=== PATIENT | female | born 1980 | race Caucasian/White ===

== ENCOUNTER 2019-03-05 18:27 | Emergency (ER) | payer OTHER ==
--- OUTSIDE RECORDS SUMMARY | 2019-03-05 18:29 | XMS REPORT ---
:1980 Author Organization eClinicalWorks Care Team Providers Name Role Phone [facility] Provider Role Unavailable Allergies No Known Allergies Problems Problem Type Condition Code Onset Dates Condition Status Assessment Need for Tdap vaccination Z23 Active Assessment Not immune to hepatitis B virus Z78.9 Active Problem Pelvic pain R10.2 Active Problem Breast pain, right N64.4 Active Problem Abnormal mammogram R92.8 Active Problem Migraine without aura and without G43.009 Active status migrainosus, not intractable Problem Well woman exam with routine Z01.419 Active gynecological exam Problem Hyperlipidemia, mixed E78.2 Active Medications No Known Medications Results No Known Results Immunizations Vaccine Administration Date TDAP- Boostrix November 08, 2018 Summary Purpose [employer]Clinical[employer] Submission
--- OUTSIDE RECORDS SUMMARY | 2019-03-05 18:29 | XMS REPORT ---
:1980 Author Organization e[employer] Care Team Providers Name Role Phone Vazquez, [facility] Provider Role Unavailable Allergies No Known Allergies Problems Problem Type Condition Code Onset Dates Condition Status Problem Pelvic pain R10.2 Active Problem Breast pain, right N64.4 Active Problem Abnormal mammogram R92.8 Active Problem Migraine without aura and without G43.009 Active status migrainosus, not intractable Problem Well woman exam with routine Z01.419 Active gynecological exam Problem Hyperlipidemia, mixed E78.2 Active Medications No Known Medications Results No Known Results Summary Purpose eClinicalWorks Submission
--- OUTSIDE RECORDS SUMMARY | 2019-03-05 18:29 | XMS REPORT ---
:1980 Author Organization eClinical[employer] Care Team Providers Name Role Phone Charles Vazquez Provider Role Unavailable Allergies No Known Allergies Problems Problem Type Condition Code Onset Dates Condition Status Assessment Encounter for pre-employment Z02.1 Active examination Problem Pelvic pain R10.2 Active Problem Breast pain, right N64.4 Active Problem Abnormal mammogram R92.8 Active Problem Migraine without aura and without G43.009 Active status migrainosus, not intractable Problem Well woman exam with routine Z01.419 Active gynecological exam Problem Hyperlipidemia, mixed E78.2 Active Medications No Known Medications Results No Known Results Summary Purpose [employer] Submission
--- OUTSIDE RECORDS SUMMARY | 2019-03-05 18:29 | XMS REPORT ---
:1980 Author Organization eClinicalWorks Care Team Providers Name Role Phone Rodri Landers Provider Role Unavailable Allergies No Known Allergies Problems Problem Type Condition Code Onset Dates Condition Status Assessment Abnormal mammogram R92.8 Active Problem Pelvic pain R10.2 Active Problem Breast pain, right N64.4 Active Problem Abnormal mammogram R92.8 Active Problem Migraine without aura and without G43.009 Active status migrainosus, not intractable Problem Well woman exam with routine Z01.419 Active gynecological exam Problem Hyperlipidemia, mixed E78.2 Active Medications No Known Medications Results No Known Results Summary Purpose [employer] Submission
--- OUTSIDE RECORDS SUMMARY | 2019-03-05 18:29 | XMS REPORT ---
:1980 Author Organization eClinicalWorks Care Team Providers Name Role Phone Rodri Landers Provider Role Unavailable Allergies, Adverse Reactions, Alerts Substance Reaction Event Type N.K.D.A. Info Not Available Non Drug Allergy Problems Problem Type Condition Code Onset Dates Condition Status Assessment Breast pain, right N64.4 Active Problem Pelvic pain R10.2 Active Problem Breast pain, right N64.4 Active Problem Abnormal mammogram R92.8 Active Problem Migraine without aura and without G43.009 Active status migrainosus, not intractable Problem Well woman exam with routine Z01.419 Active gynecological exam Problem Hyperlipidemia, mixed E78.2 Active Medications No Known Medications Results No Known Results Summary Purpose eClinicalWorks Submission
--- OUTSIDE RECORDS SUMMARY | 2019-03-05 18:29 | XMS REPORT ---
:1980 Author Organization eClinicalWorks Care Team Providers Name Role Phone Rodri Landers Provider Role Unavailable Allergies No Known Allergies Problems Problem Type Condition Code Onset Dates Condition Status Problem Pelvic pain R10.2 Active Problem Breast pain, right N64.4 Active Problem Well woman exam with routine Z01.419 Active gynecological exam Assessment Breast pain, right N64.4 Active Problem Hyperlipidemia, mixed E78.2 Active Problem Migraine without aura and without G43.009 Active status migrainosus, not intractable Medications No Known Medications Results No Known Results Summary Purpose [employer]ClinicalWorks Submission
--- OUTSIDE RECORDS SUMMARY | 2019-03-05 18:29 | XMS REPORT ---
:1980 Author Organization eClinicalWorks Care Team Providers Name Role Phone Rodri Landers Provider Role Unavailable Allergies, Adverse Reactions, Alerts Substance Reaction Event Type N.K.D.A. Info Not Available Non Drug Allergy Problems Problem Type Condition Code Onset Dates Condition Status Assessment Pelvic pain R10.2 Active Assessment Breast pain, right N64.4 Active Problem Pelvic pain R10.2 Active Problem Breast pain, right N64.4 Active Problem Well woman exam with routine Z01.419 Active gynecological exam Assessment Well woman exam with routine Z01.419 Active gynecological exam Problem Hyperlipidemia, mixed E78.2 Active Problem Migraine without aura and without G43.009 Active status migrainosus, not intractable Medications No Known Medications Results Name Result Date Reference Range Unit Abnormality Flag TRICHOMONAS VAGINALIS, QL TMA, PAP VIAL ----TRICHOMONAS NOT DETECTED [id number] NOT DETECTED N VAGINALIS, QL TMA, PAP VIAL HPV GENOTYPES 16,18/45 ----HPV 16 RNA NOT DETECTED [id number] NOT DETECTED ----HPV 18/45 RNA NOT DETECTED [id number] NOT DETECTED N THINPREP TIS PAP AND HPV mRNA E6/E7 REFLEX HPV 16,18/45 ----HPV mRNA E6/E7 Detected [id number] Not Detected A ----SOURCE: None given [id number] N ----CLINICAL INFORMATION: None given [id number] N ----LMP: NONE GIVEN [id number] N ----PREV. PAP: NONE GIVEN [id number] N ----PREV. BX: NONE GIVEN [id number] N SURESWAB(R) CHLAMYDIA/ N. GONORRHOEAE RNA, TMA ----NEISSERIA GONORRHOEAE NOT DETECTED [id number] NOT DETECTED N RNA, TMA, UROGENITAL ----CHLAMYDIA TRACHOMATIS NOT DETECTED [id number] NOT DETECTED N RNA, TMA, UROGENITAL Summary Purpose [employer] Submission
[2019-03-05] MEDS ORDERED: NA CHLORIDE 0.9% 1,000 ML ONE (19:00)
[2019-03-05 19:05] LABS: Urine Blood NEGATIVE (NEG); Urine Glucose NEGATIVE (NEG); Urine Protein NEGATIVE (NEG)
[2019-03-05] MEDS ORDERED: KETOROLAC 30 MG/ML INJ ONE (19:11)
[2019-03-05] MEDS ORDERED: ONDANSETRON 4 MG/2 ML VIAL ONE (19:11)
--- NOTE | 2019-03-05 19:17 | RAD REPORT ---
EXAM DESCRIPTION: CT - Head Brain Wo Cont - 03/05/2019 6:57 pm CLINICAL HISTORY: HEADACHE Headache, drowsiness COMPARISON: No comparisons TECHNIQUE: All CT scans are performed using dose optimization technique as appropriate and may inclu de automated exposure control or mA/KV adjustment according to patient size. FINDINGS: No intracranial hemorrhage, hydrocephalus or extra-axial fluid collection.No areas of brai n edema or evidence of midline shift. The paranasal sinuses and mastoids are clear. The calvarium is intact. IMPRESSION: No acute intracranial abnormality.
[2019-03-05] MEDS ORDERED: METOCLOPRAMIDE 10 MG/2mL INJ ONE (19:18)
[2019-03-05 19:25] LABS: Absolute Lymphocytes (CBC) 2.5 K/uL (0.7-4.9); Basophils % 0.6 % (0-1.3); Hematocrit 37.7 % (36.0-45.0); Lymphocytes % 24.6 % (15.3-44.8); RBC Red Blood Cell Count 4.51 M/uL (3.86-4.86)
--- NOTE | 2019-03-05 19:31 | RAD REPORT ---
EXAM DESCRIPTION: RAD - Chest Single View - 03/05/2019 7:19 pm CLINICAL HISTORY: COUGH Chest pain. COMPARISON: No comparisons FINDINGS: Portable technique limits examination quality. The lungs are grossly clear. The heart is normal in size. No displaced fractures. IMPRESSION: No acute intrathoracic process suspected.
[2019-03-05 19:37] LABS: Protime INR 1.08
[2019-03-05 19:42] LABS: ALT/SGPT 18 U/L (12-78); AST/SGOT 11 U/L (15-37); Albumin 3.8 g/dL (3.4-5.0); Alkaline Phosphatase 57 U/L (45-117); BUN Blood Urea Nitrogen 15 mg/dL (7-18); Bicarbonate 30 mmol/L (21-32); Bilirubin Direct < 0.1 mg/dL (0-0.2); Bilirubin Total 0.3 mg/dL (0.2-1.0); Glucose Level 84 mg/dL (74-106); Magnesium 2.1 mg/dL (1.8-2.4); NT PRO-BNP 54 pg/mL (<125); Potassium 3.8 mmol/L (3.5-5.1); Protein, Total 7.5 g/dL (6.4-8.2); Sodium Level 140 mmol/L (136-145); Troponin (Emerg Dept Use Only) < 0.02 ng/mL (0.0-0.045)
--- NOTE | 2019-03-05 20:23 | RAD REPORT ---
EXAM DESCRIPTION: CT - Head angio - 03/05/2019 8:10 pm CLINICAL HISTORY: DIZZINESS Headache, drowsiness COMPARISON: <Comparisons> TECHNIQUE: CT angiography of the head was performed with MIPs. All CT scans are performed using dose optimization technique as appropriate and may include automated exposure control or mA/KV adjustment according to patient size. FINDINGS: No evidence of aneurysm is detected. No flow-limiting stenosis or vascular malformation id entified. Antegrade flow is seen in the vertebral arteries. The vertebral arteries are codominant. The visualized dural venous sinuses are patent. IMPRESSION: No significant flow abnormality is detected.
--- NOTE | 2019-03-05 20:31 | ER ---
Nurse's Notes [facility] Name: Marylin Sanchez Age: 38 yrs Sex: Female : 1980 Arrival Date: 03/05/2019 Time: 18:29 Bed 24 Private MD: Unknown, Unknown Diagnosis: Headache;Dizziness and giddiness Presentation: 03/05 18:34 Presenting complaint: Patient states: "I was at the football game and I started feeling aj1 really intense pressure in my head, and then I got dizzy and my vision was blurry so I sat down, someone got me a water and I waited till the game was over and I don't feel as much pressure anymore but I still have a really bad headache." Reports that blurred vision has resolved. Transition of care: patient was not received from another setting of care. Onset of symptoms was March 05, 2019 at 16:30. Risk Assessment: Do you want to hurt yourself or someone else? Patient reports no desire to harm self or others. Initial Sepsis Screen: Does the patient meet any 2 criteria? HR > 90 bpm. No. Patient's initial sepsis screen is negative. Does the patient have a suspected source of infection? No. Patient's initial sepsis screen is negative. Care prior to arrival: None. 18:34 Method Of Arrival: Ambulatory aj1 18:34 Acuity: KRISTA 3 aj1 Triage Assessment: 18:36 General: Appears in no apparent distress. comfortable, Behavior is calm, cooperative, aj1 appropriate for age. Pain: Complains of pain in top of head and forehead Pain does not radiate. Pain currently is 9 out of 10 on a pain scale. Neuro: Level of Consciousness is awake, alert, obeys commands. Neuro: Oriented to person, place, time, situation, Moves all extremities. Full function Gait is steady, Speech is normal, Facial symmetry appears normal, Reports blurred vision dizziness, headache Denies weakness. Cardiovascular: Patient's skin is warm and dry. Respiratory: Airway is patent Respiratory effort is even, unlabored, Respiratory pattern is regular, symmetrical. 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 - Social history:: Smoking status: Patient uses tobacco products, denies chronic smoking, but will smoke occasionally. - Ebola Screening: : Patient denies travel to an Ebola-affected area in the 21 days before illness onset. Screenin:09 Abuse screen: Denies threats or abuse. Denies injuries from another. Nutritional mg2 screening: No deficits noted. Tuberculosis screening: No symptoms or risk factors identified. Fall Risk IV access (20 points). Assessment: 20:06 General: Appears in no apparent distress. comfortable, Behavior is calm, cooperative. mg2 Pain: Complains of pain in head Pain does not radiate. Pain currently is 6 out of 10 on a pain scale. Quality of pain is described as aching, Pain began gradually, Is intermittent. Neuro: Level of Consciousness is awake, alert, obeys commands, Oriented to person, place, time, situation. Neuro: Reports dizziness, headache. Cardiovascular: Capillary refill < 3 seconds Patient's skin is warm and dry. Respiratory: Airway is patent Respiratory effort is even, unlabored, Respiratory pattern is regular, symmetrical. GI: Reports nausea. : No signs and/or symptoms were reported regarding the genitourinary system. EENT: No signs and/or symptoms were reported regarding the EENT system. Derm: Skin is intact, is healthy with good turgor, Skin is pink, warm \\T\\ dry. normal. Musculoskeletal: Circulation, motion, and sensation intact. Capillary refill < 3 seconds. 20:53 Reassessment: Patient appears in no apparent distress at this time. Patient and/or mg2 family updated on plan of care and expected duration. Pain level reassessed. Patient is alert, oriented x 3, equal unlabored respirations, skin warm/dry/pink. Patient states feeling better. Patient states symptoms have improved. Vital Signs: 18:36 BP 123 / 85; Pulse 93; Resp 18; Temp 98.1; Pulse Ox 100% on R/A; Weight 92.99 kg (R); aj1 Height 5 ft. 7 in. (170.18 cm) (R); Pain 7/10; 20:00 BP 115 / 87; Pulse 90; Resp 18; Pulse Ox 100% ; mg2 21:04 BP 96 / 65; Pulse 89; Resp 18; Temp 98; Pulse Ox 100% on R/A; mg2 18:36 Body Mass Index 32.11 (92.99 kg, 170.18 cm) aj1 ED Course: 18:29 Patient arrived in ED. ag5 18:29 None, None is Private Physician. ag5 18:29 Unknown, Unknown is Private Physician. ag5 18:36 Triage completed. aj1 18:36 Arm band placed on Patient placed in an exam room. aj1 18:42 Carter March MD is Attending Physician. zafar 18:48 Kavon Dobbins, LEWIS is Primary Nurse. mg2 18:57 CT completed. Patient tolerated procedure well. Patient moved back from CT. bq 18:57 CT Head Brain wo Cont In Process Unspecified. EDMS 19:19 XRAY Chest (1 view) In Process Unspecified. EDMS 19:39 Radiology exam delayed due to lab results not completed at this time. (BUN/Creatinine). kw1 20:02 Marybeth Silva FNP-C [facility]. snw 20:09 CT completed. Patient tolerated procedure well. Patient moved back from CT. mw3 20:09 No provider procedures requiring assistance completed. Inserted saline lock: 20 gauge mg2 in left antecubital area, using aseptic technique. Blood collected. 20:10 Patient has correct armband on for positive identification. Pulse ox on. NIBP on. Door mg2 closed. Warm blanket given. 20:11 CT Head Angio In Process Unspecified. EDMS 20:30 Tonny Moon MD is Referral Physician. snw 21:03 IV discontinued, intact, bleeding controlled, No redness/swelling at site. Pressure mg2 dressing applied. Administered Medications: 19:13 Drug: NS 0.9% 1000 ml Route: IV; Rate: 1 bolus; Site: left antecubital; mg2 20:30 Follow up: Response: No adverse reaction; IV Status: Completed infusion; IV Intake: mg2 1000ml 19:13 CANCELLED (Physician Discretion): TORadol 30 mg IVP once mg2 19:13 CANCELLED (Physician Discretion): Zofran 4 mg IVP once; over 2 minutes mg2 19:24 Drug: TORadol 30 mg Route: IVP; Site: left antecubital; mg2 20:29 Follow up: Response: No adverse reaction; Marked relief of symptoms mg2 19:24 Drug: Reglan 10 mg Route: IVP; Site: left antecubital; mg2 20:29 Follow up: Response: No adverse reaction; Marked relief of symptoms mg2 Intake: 20:30 IV: 1000ml; Total: 1000ml. mg2 Outcome: 20:30 Discharge ordered by MD. lane 21:05 Discharged to home ambulatory. mg2 21:05 Condition: stable 21:05 Discharge instructions given to patient, Instructed on discharge instructions, follow up and referral plans. medication usage, Demonstrated understanding of instructions, follow-up care, medications, Prescriptions given X 2. 21:05 Patient left the ED. mg2 Signatures: Dispatcher [employer] EDMaude Duarte RN RN aj1 Carter March MD MD cha Therrien, Shelly, TRANSPORTATION ASSISTANT-C TRANSPORTATION ASSISTANT-Csnw Aliza Negrete Kimberly kw1 Kavon Dobbins RN RN mg2 Rose Mary Llanos mw3 Henry Betancur 5
--- NOTE | 2019-03-05 20:31 | EDPHYS ---
Physician Documentation [facility] Name: Marylin Sanchez Age: 38 yrs Sex: Female : 1980 Arrival Date: 03/05/2019 Time: 18:29 Bed 24 Private MD: Unknown, Unknown ED Physician Carter March HPI: 03/05 19:11 This 38 yrs old Female presents to ER via Ambulatory with complaints of [facility] Dizziness, Blurred Vision, Head Pressure. 19:11 The patient presents with dizziness, feeling faint. 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 - Social history:: Smoking status: Patient uses tobacco products, denies chronic smoking, but will smoke occasionally. - Ebola Screening: : Patient denies travel to an Ebola-affected area in the 21 days before illness onset. ROS: 19:15 Constitutional: Negative for fever, chills, and weight loss, Eyes: Negative for injury, zafar pain, redness, and discharge, ENT: Negative for injury, pain, and discharge, Neck: Negative for injury, pain, and swelling, Cardiovascular: Negative for chest pain, palpitations, and edema, Respiratory: Negative for shortness of breath, cough, wheezing, and pleuritic chest pain, Abdomen/GI: Negative for abdominal pain, nausea, vomiting, diarrhea, and constipation, Back: Negative for injury and pain, : Negative for injury, bleeding, discharge, and swelling, MS/Extremity: Negative for injury and deformity, Skin: Negative for injury, rash, and discoloration, Psych: Negative for depression, anxiety, suicide ideation, homicidal ideation, and hallucinations, Allergy/Immunology: Negative for hives, rash, and allergies, Endocrine: Negative for neck swelling, polydipsia, polyuria, polyphagia, and marked weight changes, Hematologic/Lymphatic: Negative for swollen nodes, abnormal bleeding, and unusual bruising. 19:15 Neuro: Positive for headache. Exam: 19:15 Constitutional: This is a well developed, well nourished patient who is awake, alert, zafar and in no acute distress. Head/Face: Normocephalic, atraumatic. Eyes: Pupils equal round and reactive to light, extra-ocular motions intact. Lids and lashes normal. Conjunctiva and sclera are non-icteric and not injected. Cornea within normal limits. Periorbital areas with no swelling, redness, or edema. ENT: Nares patent. No nasal discharge, no septal abnormalities noted. Tympanic membranes are normal and external auditory canals are clear. Oropharynx with no redness, swelling, or masses, exudates, or evidence of obstruction, uvula midline. Mucous membranes moist. Neck: Trachea midline, no thyromegaly or masses palpated, and no cervical lymphadenopathy. Supple, full range of motion without nuchal rigidity, or vertebral point tenderness. No Meningismus. Chest/axilla: Normal chest wall appearance and motion. Nontender with no deformity. No lesions are appreciated. Cardiovascular: Regular rate and rhythm with a normal S1 and S2. No gallops, murmurs, or rubs. Normal PMI, no JVD. No pulse deficits. Respiratory: Lungs have equal breath sounds bilaterally, clear to auscultation and percussion. No rales, rhonchi or wheezes noted. No increased work of breathing, no retractions or nasal flaring. Abdomen/GI: Soft, non-tender, with normal bowel sounds. No distension or tympany. No guarding or rebound. No evidence of tenderness throughout. Back: No spinal tenderness. No costovertebral tenderness. Full range of motion. Skin: Warm, dry with normal turgor. Normal color with no rashes, no lesions, and no evidence of cellulitis. MS/ Extremity: Pulses equal, no cyanosis. Neurovascular intact. Full, normal range of motion. Neuro: Awake and alert, GCS 15, oriented to person, place, time, and situation. Cranial nerves II-XII grossly intact. Motor strength 5/5 in all extremities. Sensory grossly intact. Cerebellar exam normal. Normal gait. Psych: Awake, alert, with orientation to person, place and time. Behavior, mood, and affect are within normal limits. 19:22 Neck: ROM/movement: is normal, no acute changes, Meningeal signs: are not present, azfar Kernig's sign is negative, Brudzinski's sign is negative. Vital Signs: 18:36 BP 123 / 85; Pulse 93; Resp 18; Temp 98.1; Pulse Ox 100% on R/A; Weight 92.99 kg (R); aj1 Height 5 ft. 7 in. (170.18 cm) (R); Pain 7/10; 20:00 BP 115 / 87; Pulse 90; Resp 18; Pulse Ox 100% ; mg2 21:04 BP 96 / 65; Pulse 89; Resp 18; Temp 98; Pulse Ox 100% on R/A; mg2 18:36 Body Mass Index 32.11 (92.99 kg, 170.18 cm) aj1 MDM: 18:45 Patient medically screened. [facility] 19:17 Data reviewed: vital signs, nurses notes, lab test result(s), EKG, radiologic studies, [facility] CT scan, plain films. 03/05 18:44 Order name: Basic Metabolic Panel; Complete Time: 20:02 [facility] 03/05 18:44 Order name: CBC with Diff; Complete Time: 20:02 [facility] 03/05 18:44 Order name: LFT's; Complete Time: 20:02 [facility] 03/05 18:44 Order name: Magnesium; Complete Time: 20:02 [facility] 03/05 18:44 Order name: NT PRO-BNP; Complete Time: 20:02 [facility] 03/05 18:44 Order name: PT-INR; Complete Time: 20:02 [facility] 03/05 18:44 Order name: Troponin (emerg Dept Use Only); Complete Time: 20:02 [facility] 03/05 18:44 Order name: XRAY Chest (1 view); Complete Time: 20:02 [facility] 03/05 18:44 Order name: Urine Culture [facility] 03/05 18:45 Order name: CT Head Brain wo Cont; Complete Time: 20:02 [facility] 03/05 18:57 Order name: Urine Dipstick--Ancillary (enter results); Complete Time: 19:11 [facility] 03/05 18:57 Order name: Urine --Ancillary (enter results); Complete Time: 19:11 [facility] 03/05 19:11 Order name: CT Head Angio; Complete Time: 20:29 [facility] 03/05 18:44 Order name: EKG; Complete Time: 18:45 [facility] 03/05 18:44 Order name: Cardiac monitoring; Complete Time: 19:13 [facility] 03/05 18:44 Order name: EKG - Nurse/Tech; Complete Time: 20:23 [facility] 03/05 18:44 Order name: IV Saline Lock; Complete Time: 19:14 [facility] 03/05 18:44 Order name: Labs collected and sent; Complete Time: 19:14 [facility] 03/05 18:44 Order name: O2 Per Protocol; Complete Time: 19:14 [facility] 03/05 18:44 Order name: O2 Sat Monitoring; Complete Time: 19:14 [facility] 03/05 18:44 Order name: Urine Dipstick-Ancillary (obtain specimen); Complete Time: 18:55 [facility] 03/05 18:44 Order name: Urine Test (obtain specimen); Complete Time: 18:55 [facility] Administered Medications: 19:13 Drug: NS 0.9% 1000 ml Route: IV; Rate: 1 bolus; Site: left antecubital; mg2 20:30 Follow up: Response: No adverse reaction; IV Status: Completed infusion; IV Intake: mg2 1000ml 19:13 CANCELLED (Physician Discretion): TORadol 30 mg IVP once mg2 19:13 CANCELLED (Physician Discretion): Zofran 4 mg IVP once; over 2 minutes mg2 19:24 Drug: TORadol 30 mg Route: IVP; Site: left antecubital; mg2 20:29 Follow up: Response: No adverse reaction; Marked relief of symptoms mg2 19:24 Drug: Reglan 10 mg Route: IVP; Site: left antecubital; mg2 20:29 Follow up: Response: No adverse reaction; Marked relief of symptoms mg2 Disposition: 03/05/19 20:30 Discharged to Home. Impression: Headache, Dizziness and giddiness. - Condition is Stable. - Discharge Instructions: Dizziness, General Headache Without Cause, General Headache Without Cause, [id number], Dizziness, [id number]-[id number]. - Prescriptions for Fioricet with Codeine 50- 325-40-30 mg Oral capsule - take 1 capsule by ORAL route every 4 hours as needed not to exceed 6 capsules per 24hrs; 24 capsule. Zofran 4 mg Oral Tablet - take 1 tablet by ORAL route every 12 hours As needed; 20 tablet. - Medication Reconciliation Form, Thank You Letter, Antibiotic Education, Prescription Opioid Use form. - Follow up: Private Physician; When: 2 - 3 days; Reason: Recheck today's complaints, Continuance of care, Re-evaluation by your physician. Follow up: Tonny Moon; When: 2 - 3 days; Reason: Recheck today's complaints, Re-evaluation by your physician. - Problem is new. - Symptoms have improved. Signatures: Dispatcher [employer] EDMaude Duarte, RN RN aj1 Carter March MD MD cha Therrien, Shelly, DIRECTOR OF CLINICAL EDUCATION-C DIRECTOR OF CLINICAL EDUCATION-Csnw Kavon Dobbins, RN RN mg2 Corrections: (The following items were deleted from the chart) 19:13 19:12 TORadol 30 mg IVP once ordered. mg2 mg2 19:13 19:12 Zofran 4 mg IVP once; over 2 minutes ordered. mg2 mg2 21:05 20:30 03/05/2019 20:30 Discharged to Home. Impression: Headache; Dizziness and mg2 giddiness. Condition is Stable. Discharge Instructions: Dizziness, General Headache Without Cause, General Headache Without Cause, [id number]-[id number]-[id number], Dizziness, [id number]-[id number]. Prescriptions for Fioricet with Codeine 67-769-46-30 mg Oral capsule - take 1 capsule by ORAL route every 4 hours as needed not to exceed 6 capsules per 24hrs; 24 capsule, Zofran 4 mg Oral Tablet - take 1 tablet by ORAL route every 12 hours As needed; 20 tablet. and Forms are Medication Reconciliation Form, Thank You Letter, Antibiotic Education, Prescription Opioid Use. Follow up: Private Physician; When: 2 - 3 days; Reason: Recheck today's complaints, Continuance of care, Re-evaluation by your physician. Follow up: Tonny Moon; When: 2 - 3 days; Reason: Recheck today's complaints, Re-evaluation by your physician. Problem is new. Symptoms have improved. snw
[2019-03-05 21:29] VITALS: O2SAT 100
[2019-03-05 21:31] VITALS: BP 96/65; TEMP 98
--- NOTE | 2019-03-06 10:03 | EKG ---
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
== END 2019-03-05 21:05 | disposition home or self-care (01) ==
LOC: ER 18:27
DX: R51 Headache (principal); Z72.0 Tobacco use
CPT/HCPCS: 96361; 93005; 87088; 85025; 87086; 80048; 36415; 83735; 81025; 85610; 80076; 81003; 84484; 83880; 70450; 70496; 71045; 96375; 96374; 99284; Q9967; J2765; J7030; J2405

== ENCOUNTER 2019-05-27 10:10 | Emergency (ER) | payer OTHER ==
--- OUTSIDE RECORDS SUMMARY | 2019-05-27 10:11 | XMS REPORT ---
[...] DETECTED N RNA, TMA, UROGENITAL Summary Purpose [employer] [facility] Submission
--- OUTSIDE RECORDS SUMMARY | 2019-05-27 10:11 | XMS REPORT ---
[...] Medications Results No Known Results Summary Purpose [employer] Submission
--- OUTSIDE RECORDS SUMMARY | 2019-05-27 10:12 | XMS REPORT ---
[...] Medications Results No Known Results Summary Purpose [employer] Submission
--- OUTSIDE RECORDS SUMMARY | 2019-05-27 10:12 | XMS REPORT ---
:1980 Author Organization [employer] Care Team Providers Name Role Phone Vazquez, [facility] Provider Role Unavailable Allergies No [...]
--- OUTSIDE RECORDS SUMMARY | 2019-05-27 10:12 | XMS REPORT ---
:1980 Author Organization [employer] Care Team Providers Name Role Phone [facility] Provider Role Unavailable Allergies No Known [...]
--- NOTE | 2019-05-27 10:56 | ER ---
Nurse's Notes [facility] [place], [place] Name: Marylin Sanchez Age: 38 yrs Sex: Female : 1980 Arrival Date: 05/27/2019 Time: 10:14 Bed Waiting Private MD: Charles Vazquez Diagnosis: Assessment: 05/27 10:52 Reassessment: pt not in lobby, called pt, pt states that she needed to follow up with iw her occupational health provided by her employer due to workman's comp. ED Course: 10:14 Patient arrived in ED. ag5 10:14 Charles Vazquez, is Private Physician. ag5 10:54 Keara Villavicencio RN is Primary Nurse. iw Administered Medications: No medications were administered Outcome: 10:54 Eloped from waiting room, Time discovered patient gone: May 27, 2019 at 10:54 iw 10:54 Patient left the ED. iw 10:54 Eloped before seeing physician iw Signatures: Keara Villavicencio RN RN Henry Betancur ag5
== END 2019-05-27 10:54 | disposition left against medical advice (07) ==
LOC: ER 10:10
DX: Z53.21 Procedure and treatment not carried out due to patient leaving prior to being seen by health care provider (principal)